=== PATIENT | male | born 1970 | race Caucasian/White ===

== ENCOUNTER → 2019-03-27 | Outpatient (CLI) | payer SELFPAY ==
--- NOTE | 2019-03-27 12:50 | Diagnostic Imaging Report ---
PROCEDURE: US DOPPLER ABD/COMPLETE TECHNIQUE: Multiple real-time grayscale images were obtained over the kidneys in various projections. Duplex evaluation of renal arteries was also attempted. INDICATION: Hypertension. COMPARISON: None available. FINDINGS: The right kidney measures 12.3 x 5.3 x 6.8 cm. Normal cortical medullary differentiation. No evidence of hydronephrosis. A 1.8 x 1.5 x 1.3 cm cystic lesion is noted within the superior pole of the right kidney. This demonstrates what appears to be a thin internal septation. The left kidney measures 11.6 x 5.7 x 6.5 cm. Normal cortical medullary differentiation. No evidence of hydronephrosis or solid renal mass. Vascular flow is noted throughout the bilateral kidneys. Peak systolic velocities within the bilateral renal arteries are within normal limits. Additionally, the bilateral renal artery to aorta ratios are within normal limits. The resistive indices within the arcuate arteries within the bilateral kidneys are within normal limits. The urinary bladder is unremarkable. The left ureteral jet is visualized. The right ureteral jet was not visualized on this examination. IMPRESSION: No evidence of renal artery stenosis. Septated right renal cyst. Given the presence of the septation, further evaluation is recommended. Therefore, recommend a CT of the abdomen with and without contrast. Nonvisualization of the right ureteral jet. This likely simply relates to timing of the examination, as there is no evidence of right-sided hydronephrosis. Dictated by: Dictated on workstation # [id number]
== END ==
LOC: CARD 06:59
PROVIDERS: ATTEND Internal Medicine Cardiovascular Disease
DX: I10 Essential (primary) hypertension (principal); E78.2 Mixed hyperlipidemia; E11.9 Type 2 diabetes mellitus without complications; E66.9 Obesity, unspecified; N28.1 Cyst of kidney, acquired; Z96.0 Presence of urogenital implants
CPT/HCPCS: 93306; 93975